=== PATIENT | female | born 1965 | race Two or more races ===

== ENCOUNTER 2020-02-23 23:25 | Emergency (ER) | payer MEDICAID ==
[~2020-02-23] VITALS: Ht 160 cm; Wt 99.3 kg
[2020-02-24 02:07] VITALS: BP 119/72
[2020-02-24] MEDS ORDERED: KETOROLAC TROMETH 60MG/2ML VIAL IM ONE (02:15)
== END 2020-02-24 03:38 | disposition home or self-care (01) ==
LOC: ER 23:41
DX: G43.909 Migraine, unspecified, not intractable, without status migrainosus (principal); M19.90 Unspecified osteoarthritis, unspecified site; E11.9 Type 2 diabetes mellitus without complications; I10 Essential (primary) hypertension
CPT/HCPCS: 70450; 96372; 99284; J1885